=== PATIENT | male | born 1970 | race Caucasian/White ===

== ENCOUNTER 2017-08-19 16:29 | Emergency (ER) | payer SELFPAY ==
[~2017-08-19] VITALS: Ht 180.3 cm; Wt 80.0 kg
[2017-08-19] MEDS ORDERED: ALPRAZOLAM 0.5 MG TABLET PO ONE (17:15)
[2017-08-19] MEDS ORDERED: CHLORDIAZEPOXIDE 25MG CAPSULE PO ONE (17:15)
[2017-08-19 18:41] VITALS: BP 135/80
== END 2017-08-19 18:45 | disposition home or self-care (01) ==
LOC: ER 16:39
DX: F41.1 Generalized anxiety disorder (principal)
CPT/HCPCS: 99284

== ENCOUNTER 2017-08-25 20:08 | Emergency (ER) | payer SELFPAY ==
[~2017-08-25] VITALS: Ht 172.7 cm; Wt 73.0 kg
[2017-08-25] MEDS ORDERED: ONDANSETRON HCL 4MG/2ML VIAL IV STA (22:46)
[2017-08-25] MEDS ORDERED: KETOROLAC 30MG/ML VIAL IV STA (22:46)
[2017-08-25] MEDS ORDERED: SODIUM CHLORIDE 0.9% 1,000 ML IV ONE (22:46)
[2017-08-25] MEDS ORDERED: CHLORDIAZEPOXIDE 25MG CAPSULE PO ONE (23:00)
[2017-08-25] MEDS ORDERED: LORAZEPAM 2MG/ML CPJ IV ONE (23:00)
[2017-08-25 23:42] LABS: BASOPHILS % 0.5 % (0.0-2.0); EOSINOPHILS % 1.4 % (0.0-5.0); HEMATOCRIT. 44.4 % (42.0-52.0); HEMOGLOBIN. 15.2 g/dL (14.0-18.0); MEAN CORPUSCULAR HEMOGLOBIN 30.3 pg (28.0-32.0); MEAN CORPUSCULAR VOLUME 88.3 fL (80.0-94.0); MONOCYTES % 9.9 % (2.0-8.0); NEUTROPHILS % 71.2 % (40.0-76.0); RED BLOOD CELL COUNT 5.03 mill/uL (4.7-6.1); RED CELL DISTRIBUTION WIDTH 14.5 % (11.6-14.6)
[2017-08-25 23:47] LABS: CHLORIDE 95 mEq/L (98-107)
[2017-08-26 00:21] LABS: PLATELET 94 x1000/uL (130-400)
[2017-08-26 00:57] VITALS: BP 129/77
== END 2017-08-26 01:11 | disposition home or self-care (01) ==
LOC: ER 20:25
DX: F10.239 Alcohol dependence with withdrawal, unspecified (principal); F32.9 Major depressive disorder, single episode, unspecified; F41.9 Anxiety disorder, unspecified; Y90.0 Blood alcohol level of less than 20 mg/100 ml
CPT/HCPCS: 36415; 80053; 85025; 93005; 96374; 96375; 99285; G0482; J1885; J2060; J2405; J7030; Z7610

== ENCOUNTER 2017-08-26 08:48 | Emergency (ER) | payer SELFPAY ==
[~2017-08-26] VITALS: Ht 180.3 cm; Wt 75.0 kg
[2017-08-26 12:04] LABS: *AMPHETAMINES SCREEN URINE NEGATIVE (NEGATIVE); *BARBITURATES SCREEN URINE NEGATIVE (NEGATIVE); *BENZODIAZEPINES SCREEN URINE PRESUMTIVE POSITIVE (NEGATIVE); *COCAINE SCREEN URINE NEGATIVE (NEGATIVE); METHADONE URINE SCREEN NEGATIVE (NEGATIVE)
[2017-08-26 12:05] LABS: CANNABINOID URINE SCREEN NEGATIVE (NEGATIVE); OPIATES URINE SCREEN NEGATIVE (NEGATIVE); PHENCYCLIDINE URINE SCREEN NEGATIVE (NEGATIVE)
[2017-08-26 13:04] VITALS: BP 109/73
== END 2017-08-26 14:15 | disposition home or self-care (01) ==
LOC: ER 08:48
DX: F41.1 Generalized anxiety disorder (principal); F32.9 Major depressive disorder, single episode, unspecified; F10.20 Alcohol dependence, uncomplicated; F17.200 Nicotine dependence, unspecified, uncomplicated; Y90.0 Blood alcohol level of less than 20 mg/100 ml
CPT/HCPCS: 36415; 80305; 99284; G0482

== ENCOUNTER 2023-05-20 17:22 | Emergency (ER) | payer MEDICAID, OTHER ==
[~2023-05-20] VITALS: Ht 180.3 cm; Wt 87.0 kg
[2023-05-20 17:27] VITALS: TEMP 98; O2SAT 97
[2023-05-20] MEDS ORDERED: CHLO25CA10 MT (21:11)
[2023-05-20 21:39] VITALS: BP 124/94; PULSE 115; RESP 18
== END 2023-05-20 21:41 | disposition home or self-care (01) ==
LOC: ER 17:22
DX: F10.229 Alcohol dependence with intoxication, unspecified (principal); F41.9 Anxiety disorder, unspecified; F32.9 Major depressive disorder, single episode, unspecified; Y90.9 Presence of alcohol in blood, level not specified
CPT/HCPCS: 99283